=== PATIENT | female | born 1960 | race Two or more races ===

== ENCOUNTER 2021-09-18 11:31 | Emergency (ER) | payer MEDICAID ==
[~2021-09-18] VITALS: Ht 152.4 cm; Wt 54.4 kg
--- NOTE | 2021-09-18 11:52 | NUR ---
BIB [id number] FROM HOME C/O ELEVATED BP SYSTOLIC IN 200s AT HOME THIS MORNING. REPORTS HEADACHE, GUILLEN AND EAR PAIN, AND FACE FLUSHING EVERY 30 MINS. ADMITS N/V. HX HTN. AAOX4, AMBULATORY, RR EVEN AND UNLABORED, PULSES 2+ BILATERALLY. BP 179/97. ALL OTHER V/S STABLE.
--- NOTE | 2021-09-18 12:27 | NUR ---
blood sa,ple obtained and sent to lab
[2021-09-18 12:41] LABS: BASOPHILS % (AUTO) 0.4 % (0.0-2.0); EOSINOPHILS % (AUTO) 1.7 % (0.0-6.0); HEMATOCRIT 40 % (33-45); HEMOGLOBIN 13.7 g/dL (11.5-14.8); LYMPHOCYTES # (AUTO) 2.2 K/uL (0.8-4.8); LYMPHOCYTES % (AUTO) 35.6 % (20.0-44.0); MEAN CORPUSCULAR HGB CONC 35 g/dl (31.0-36.0); MEAN CORPUSCULAR VOLUME 82 fL (82-100); MONOCYTES # (AUTO) 0.4 K/uL (0.1-1.30); MONOCYTES % (AUTO) 5.9 % (2.0-12.0); NEUTROPHILS # (AUTO) 3.5 K/uL (1.8-8.9); NEUTROPHILS % (AUTO) 56.4 % (43.0-81.0); PLATELET COUNT (AUTO) 205 K/uL (150-450); RED BLOOD CELL COUNT(AUTO) 4.82 MIL/uL (4.0-5.2); WHITE BLOOD COUNT (AUTO) 6.2 K/uL (4.3-11.0)
[2021-09-18 12:54] LABS: CALCIUM, SERUM 8.3 mg/dL (8.5-10.1); CARBON DIOXIDE 31 mmol/L (21-32); CHLORIDE 105 mmol/L (98-107); CREATININE 0.6 mg/dL (0.6-1.3); GLUCOSE 95 mg/dL (74-106); SODIUM SERUM 144 mmol/L (136-145); UREA NITROGEN, BLOOD 9 mg/dL (7-18)
[2021-09-18 14:36] VITALS: BP 140/85
== END 2021-09-18 14:37 | disposition home or self-care (01) ==
LOC: ER 11:35
DX: I10 Essential (primary) hypertension (principal); R51.9 Headache, unspecified; E78.00 Pure hypercholesterolemia, unspecified; Z60.2 Problems related to living alone
CPT/HCPCS: 36415; 70450-TC; 71045-TC; 80048-TC; 84484-TC; 85025-TC

== ENCOUNTER 2022-08-05 07:10 | Emergency (ER) | payer MEDICAID ==
[~2022-08-05] VITALS: Ht 154.9 cm; Wt 64.0 kg
[2022-08-05] MEDS ORDERED: ONDANSETRON HCL/PF 4 MG/2 ML VIAL ONE (07:24)
--- NOTE | 2022-08-05 07:25 | NUR ---
RECEIVED PT 61 YRS FEMALE CAME FROM HOME by reid C/O ABD PAIN WITH N/V for 2 day
[2022-08-05] MEDS ORDERED: ONDANSETRON HCL/PF 4 MG/2 ML VIAL IVP ONE (07:30)
[2022-08-05] MEDS ORDERED: IV NS 0.9% 1,000 ML BAG IV ONE (07:30)
--- NOTE | 2022-08-05 07:40 | NUR ---
TO CT SCAN OF ABDOMIN VIA LISSETT PUGA VS
[2022-08-05] MEDS ORDERED: MAG HYDROX/AL HYDROX/SIMETH 30 ML UDC ONE (07:46)
[2022-08-05] MEDS ORDERED: LIDOCAINE VISCOUS 2% UD 15 ML UDC ONE (07:46)
[2022-08-05] MEDS ORDERED: FAMOTIDINE/PF INJ 20 MG/2 ML VIAL IV ONE ×2 (07:47→08:00)
[2022-08-05] MEDS ORDERED: MORPHINE SULFATE INJ 4 MG/ML DISP.SYRIN ONE (07:47)
[2022-08-05 07:49] LABS: BASOPHILS % (AUTO) 0.2 % (0.0-2.0); EOSINOPHILS % (AUTO) 0.5 % (0.0-6.0); HEMATOCRIT 42 % (33-45); HEMOGLOBIN 13.9 g/dL (11.5-14.8); LYMPHOCYTES # (AUTO) 0.6 K/uL (0.8-4.8); LYMPHOCYTES % (AUTO) 7.9 % (20.0-44.0); MEAN CORPUSCULAR HGB CONC 34 g/dl (31.0-36.0); MEAN CORPUSCULAR VOLUME 82 fL (82-100); MONOCYTES # (AUTO) 0.5 K/uL (0.1-1.30); MONOCYTES % (AUTO) 6.1 % (2.0-12.0); NEUTROPHILS # (AUTO) 6.9 K/uL (1.8-8.9); NEUTROPHILS % (AUTO) 85.3 % (43.0-81.0); PLATELET COUNT (AUTO) 162 K/uL (150-450); RED BLOOD CELL COUNT(AUTO) 5.07 MIL/uL (4.0-5.2); WHITE BLOOD COUNT (AUTO) 8.1 K/uL (4.3-11.0)
[2022-08-05 08:00] LABS: CALCIUM, SERUM 8.9 mg/dL (8.5-10.1); CREATININE 0.6 mg/dL (0.6-1.3); POTASSIUM 4.1 mmol/L (3.5-5.1)
[2022-08-05] MEDS ORDERED: MAG HYDROX/AL HYDROX/SIMETH 30 ML UDC PO ONE (08:00)
[2022-08-05] MEDS ORDERED: LIDOCAINE VISCOUS 2% UD 15 ML UDC MM ONE (08:00)
[2022-08-05] MEDS ORDERED: MORPHINE SULFATE INJ 2 MG/ML DISP.SYRIN IV ONE (08:00)
[2022-08-05 08:08] LABS: ALBUMIN 3.9 g/dL (3.4-5.0); BILIRUBIN,DIRECT 0.1 mg/dL (0.0-0.2); BILIRUBIN,TOTAL 0.5 mg/dL (0.2-1.0); TOTAL PROTEIN, SERUM 7.6 g/dL (6.4-8.2)
--- NOTE | 2022-08-05 08:20 | NUR ---
RESTING AT THIS TIME NO PAIN
--- NOTE | 2022-08-05 09:38 | NUR ---
PATIENT NOT ABLE TO PROVIDE URINE SAMPLE. MADE MD AWARE
--- NOTE | 2022-08-05 09:49 | NUR ---
UA SENT TO LAB
[2022-08-05 10:29] LABS: BILIRUBIN,URINE NEGATIVE (NEGATIVE); LEUKOCYTE ESTERASE ,URINE NEGATIVE (NEGATIVE); NITRITE, URINE NEGATIVE (NEGATIVE); PROTEIN,URINE NEGATIVE (NEGATIVE); UGLUCOSE NEGATIVE (NEGATIVE); UROBILINOGEN,URINE 0.2 EU/dL (0.2)
--- NOTE | 2022-08-05 10:30 | NUR ---
DINEES ABDOMINL PAIN Resting at this time
[2022-08-05 10:36] LABS: COLOR,URINE STRAW (YELLOW)
[2022-08-05 10:51] LABS: BACTERIA,URINE None seen /HPF (None Seen); SQUAMOUS EPITHELIAL CELL,UR Few /HPF (None Seen); WBC,URINE 0-2 /HPF (0-3)
[2022-08-05] MEDS ORDERED: FAMO-131 PO (10:57)
[2022-08-05] MEDS ORDERED: ONDA4TAB5 PO (10:57)
--- NOTE | 2022-08-05 11:00 | NUR ---
DR. RITTER SEE AND SPOOK WITH PT
--- NOTE | 2022-08-05 11:24 | NUR ---
Patient discharged to home in stable condition. Written and verbal after care instructions given. Patient verbalizes understanding of instruction.
[2022-08-05 11:59] VITALS: BP 122/68
== END 2022-08-05 12:00 | disposition home or self-care (01) ==
LOC: ER 07:33
DX: R10.13 Epigastric pain (principal); R31.9 Hematuria, unspecified; I10 Essential (primary) hypertension; E78.5 Hyperlipidemia, unspecified; K21.9 Gastro-esophageal reflux disease without esophagitis; Z60.2 Problems related to living alone
CPT/HCPCS: 99285; 74176; 96374; 96375; 96361; 93005; 85025; 80048; 83690; 80076; 81001; 36415; J2270; J3490; J2405; J7030

== ENCOUNTER 2022-08-21 09:56 | Emergency (ER) | payer MEDICAID ==
[~2022-08-21] VITALS: Ht 152.4 cm; Wt 68.5 kg
[~2022-08-21 09:56] MED LIST: FAMO-131 PO; ONDA4TAB5 PO
--- NOTE | 2022-08-21 10:10 | NUR ---
SUNDAY RA102 "Palpitation earlier this am Hx of SVT - on meds and scheduled for ablation Nov. Given Adenosine 6mg now NSR +Covid 2wks ago". TO ER BED 6. PT ATTACHED TO MONITOR.
--- NOTE | 2022-08-21 10:19 | NUR ---
TECH AT BEDSIDE FOR EKG
[2022-08-21] MEDS ORDERED: ASPIRIN 325 MG TABLET ONE (10:41)
--- NOTE | 2022-08-21 10:50 | NUR ---
PHLEB AT BEDSIDE FOR BLOOD DRAW
[2022-08-21] MEDS ORDERED: ASPIRIN 325 MG TABLET PO ONE (11:00)
[2022-08-21 11:03] LABS: BASOPHILS % (AUTO) 0.2 % (0.0-2.0); EOSINOPHILS % (AUTO) 0.4 % (0.0-6.0); HEMATOCRIT 39 % (33-45); HEMOGLOBIN 13.1 g/dL (11.5-14.8); LYMPHOCYTES # (AUTO) 1.4 K/uL (0.8-4.8); LYMPHOCYTES % (AUTO) 14.8 % (20.0-44.0); MEAN CORPUSCULAR HGB CONC 34 g/dl (31.0-36.0); MEAN CORPUSCULAR VOLUME 83 fL (82-100); MONOCYTES # (AUTO) 0.6 K/uL (0.1-1.30); MONOCYTES % (AUTO) 6.2 % (2.0-12.0); NEUTROPHILS # (AUTO) 7.6 K/uL (1.8-8.9); NEUTROPHILS % (AUTO) 78.4 % (43.0-81.0); PLATELET COUNT (AUTO) 245 K/uL (150-450); RED BLOOD CELL COUNT(AUTO) 4.74 MIL/uL (4.0-5.2); WHITE BLOOD COUNT (AUTO) 9.7 K/uL (4.3-11.0)
[2022-08-21 11:11] LABS: CALCIUM, SERUM 8.5 mg/dL (8.5-10.1); CARBON DIOXIDE 26 mmol/L (21-32); CHLORIDE 108 mmol/L (98-107); CREATININE 0.5 mg/dL (0.6-1.3); GLUCOSE 93 mg/dL (74-106); POTASSIUM 3.7 mmol/L (3.5-5.1); SODIUM SERUM 142 mmol/L (136-145); UREA NITROGEN, BLOOD 19 mg/dL (7-18)
--- NOTE | 2022-08-21 13:02 | NUR ---
IV removed. Catheter intact and site benign. Pressure and 4x4 applied to site. No bleeding noted.
--- NOTE | 2022-08-21 13:02 | NUR ---
attached monitors removed.
--- NOTE | 2022-08-21 13:07 | NUR ---
Patient discharged to home in stable condition. Written and verbal after care instructions given. Patient verbalizes understanding of instruction.
[2022-08-21 13:08] VITALS: BP 126/71
== END 2022-08-21 13:09 | disposition home or self-care (01) ==
LOC: ER 09:58
DX: R00.2 Palpitations (principal); I10 Essential (primary) hypertension; E78.5 Hyperlipidemia, unspecified; K21.9 Gastro-esophageal reflux disease without esophagitis; D50.9 Iron deficiency anemia, unspecified; Z60.2 Problems related to living alone; Z79.899 Other long term (current) drug therapy
CPT/HCPCS: 36415; 71045-TC; 80048-TC; 84484-TC; 85025-TC